=== PATIENT | male | born 1950 | race Caucasian/White ===

== ENCOUNTER 2016-12-19 11:57 | Inpatient (IN) | payer MEDICAID, OTHER ==
[~2016-12-19] VITALS: Ht 185.4 cm; Wt 70.4 kg
[2016-12-19 17:56] VITALS: BP 117/71
[2016-12-19] MEDS ORDERED: ALBU2.5V NEB (18:41)
[2016-12-19] MEDS ORDERED: PIPE3.375 IV (18:41)
[2016-12-19] MEDS ORDERED: DOCU-30 PO (18:41)
[2016-12-19] MEDS ORDERED: LEVO750T26 IV (18:41)
[2016-12-19] MEDS ORDERED: IBUP-1222 PO (18:41)
[2016-12-19] MEDS ORDERED: LACT1CAP24 PO (18:41)
[2016-12-19] MEDS ORDERED: BENZ100C PO (18:41)
[2016-12-19] MEDS ORDERED: GUAI120L37 PO (18:41)
[2016-12-19] MEDS ORDERED: ENOX40SY4 SQ (18:41)
[2016-12-19] MEDS ORDERED: ACET650S21 PO (18:41)
[2016-12-19] MEDS ORDERED: VANCOMYCIN PER PHARMACY MC PRN (19:00)
[2016-12-19] MEDS ORDERED: ONDA4SOL2 IV (19:04)
[2016-12-19] MEDS ORDERED: [UNRECOGNIZED DRUG - CODE] IV (19:13)
[2016-12-19 19:30] VITALS: BP 116/71
[2016-12-19] MEDS ORDERED: PLEASE ENTER HEIGHT AND WEIGHT MC SCH (19:30)
[2016-12-19] MEDS ORDERED: OXYcodone IR 5MG TABLET PO PRN (19:30)
[2016-12-19] MEDS ORDERED: BISACODYL 10 MG SUPP PR PRN (19:30)
[2016-12-19] MEDS ORDERED: morphine SULFATE 10 MG/ML, 1ML IVPush PRN (19:30)
[2016-12-19] MEDS ORDERED: POLYETHYLENE GLYCOL 17 GM PACKET PO PRN (19:30)
[2016-12-19] MEDS ORDERED: PLEASE ENTER ALLERGIES MC SCH ×2 (19:30)
[2016-12-19 19:32] LABS: ASPARTATE AMINO TRANSFERASE 25 U/L (15-37); BLOOD UREA NITROGEN 13 mg/dL (7-18)
[2016-12-19 19:35] LABS: DIFF TOTAL CELLS COUNTED 100 CELL DIFF
[2016-12-19 19:39] LABS: VERIFY COUNTS? YES
[2016-12-19] MEDS: HEPARIN 5,000 UNITS/ML, 1ML SQ SCH (20:52)
[2016-12-19] MEDS: MEROPENEM 1 GM in SODIUM CHLORIDE 0.9% 100 ML IV SCH (20:52)
[2016-12-19] MEDS: SODIUM CHLORIDE FLUSH 3ML SYRINGE IVF SCH (21:00)
[2016-12-19] MEDS ORDERED: PHARMACOKINETIC CONSULTATION MC ONE (21:00)
[2016-12-19] MEDS ORDERED: PHARMACOKINETIC MONITORING MC PRN (21:00)
[2016-12-19] MEDS: GUAIFENESIN/COD200MG-20MG/10ML LIQUID PO PRN (22:29)
[2016-12-19] MEDS: VANCOMYCIN 1,500 MG in SODIUM CHLORIDE 0.9% 250 ML IV SCH (22:29)
[2016-12-19] MEDS ORDERED: IBUPROFEN 600 MG TABLET PO PRN (22:30)
[2016-12-19] MEDS ORDERED: IBUPROFEN 200 MG TABLET PO PRN (22:30)
[2016-12-20 02:46] VITALS: BP 110/72
[2016-12-20 05:13] LABS: BLOOD UREA NITROGEN 14 mg/dL (7-18)
[2016-12-20 05:17] LABS: ASPARTATE AMINO TRANSFERASE 25 U/L (15-37)
[2016-12-20] MEDS: MEROPENEM 1 GM in SODIUM CHLORIDE 0.9% 100 ML IV SCH ×3 (05:25→21:09)
[2016-12-20] MEDS: HEPARIN 5,000 UNITS/ML, 1ML SQ SCH ×3 (05:26→21:09)
[2016-12-20 05:45] LABS: DIFF TOTAL CELLS COUNTED 100 CELL DIFF
[2016-12-20 05:46] LABS: VERIFY COUNTS? YES
[2016-12-20 07:30] VITALS: BP 119/73
[2016-12-20] MEDS: ALBUTEROL/IPRATROPIUM 2.5MG/0.5MG, 3 ML NPPB PRN ×2 (07:45→20:13)
[2016-12-20] MEDS: SENNA/DOCUSATE TABLET PO SCH (09:00)
[2016-12-20] MEDS: SODIUM CHLORIDE FLUSH 3ML SYRINGE IVF SCH ×2 (09:00→21:00)
[2016-12-20] MEDS: VANCOMYCIN 1,500 MG in SODIUM CHLORIDE 0.9% 250 ML IV SCH ×2 (10:42→22:42)
[2016-12-20] MEDS: ONDANSETRON 2MG/ML, 2ML IVPush PRN (10:49)
[2016-12-20 12:56] VITALS: BP 93/59
[2016-12-20] MEDS: GUAIFENESIN/COD200MG-20MG/10ML LIQUID PO PRN ×2 (14:57→21:09)
[2016-12-20] MEDS: ACETAMINOPHEN 325 MG TABLET PO PRN (15:37)
[2016-12-20 19:52] VITALS: BP 96/49
[2016-12-20 21:12] VITALS: BP 100/62
[2016-12-21 01:08] VITALS: BP 110/67
[2016-12-21] MEDS: MEROPENEM 1 GM in SODIUM CHLORIDE 0.9% 100 ML IV SCH ×3 (05:10→21:37)
[2016-12-21] MEDS: HEPARIN 5,000 UNITS/ML, 1ML SQ SCH ×3 (05:10→22:48)
[2016-12-21] MEDS: ALBUTEROL/IPRATROPIUM 2.5MG/0.5MG, 3 ML NPPB SCH ×4 (05:20→19:25)
[2016-12-21] MEDS: GUAIFENESIN/COD200MG-20MG/10ML LIQUID PO PRN ×2 (06:14→19:44)
[2016-12-21 07:52] VITALS: BP 108/65
[2016-12-21] MEDS: SODIUM CHLORIDE FLUSH 3ML SYRINGE IVF SCH ×2 (09:00→21:38)
[2016-12-21] MEDS: SENNA/DOCUSATE TABLET PO SCH (09:00)
[2016-12-21] MEDS: ACETAMINOPHEN 325 MG TABLET PO PRN ×2 (09:21→19:44)
[2016-12-21] MEDS: VANCOMYCIN 1,500 MG in SODIUM CHLORIDE 0.9% 250 ML IV SCH ×2 (10:23→22:48)
[2016-12-21 14:00] VITALS: BP 116/73
[2016-12-21 18:38] VITALS: BP 115/67
[2016-12-22] MEDS: GUAIFENESIN/COD200MG-20MG/10ML LIQUID PO PRN ×3 (02:20→22:17)
[2016-12-22] MEDS: ACETAMINOPHEN 325 MG TABLET PO PRN ×4 (02:20→22:02)
[2016-12-22] MEDS: MEROPENEM 1 GM in SODIUM CHLORIDE 0.9% 100 ML IV SCH ×3 (05:44→22:00)
[2016-12-22] MEDS: HEPARIN 5,000 UNITS/ML, 1ML SQ SCH ×3 (06:37→22:15)
[2016-12-22 07:08] VITALS: BP 122/70
[2016-12-22] MEDS: ALBUTEROL/IPRATROPIUM 2.5MG/0.5MG, 3 ML NPPB SCH ×4 (07:40→19:22)
[2016-12-22] MEDS: SODIUM CHLORIDE FLUSH 3ML SYRINGE IVF SCH ×2 (09:00→22:00)
[2016-12-22] MEDS: SENNA/DOCUSATE TABLET PO SCH (09:49)
[2016-12-22] MEDS: VANCOMYCIN 1,500 MG in SODIUM CHLORIDE 0.9% 250 ML IV SCH ×2 (09:55→22:49)
[2016-12-22 14:39] VITALS: BP 114/78
[2016-12-22 20:46] VITALS: BP 95/67
[2016-12-22 22:15] VITALS: BP 108/72
[2016-12-23 03:31] VITALS: BP 114/67
[2016-12-23] MEDS: MEROPENEM 1 GM in SODIUM CHLORIDE 0.9% 100 ML IV SCH ×3 (06:09→21:08)
[2016-12-23] MEDS: HEPARIN 5,000 UNITS/ML, 1ML SQ SCH ×3 (06:09→21:09)
[2016-12-23 07:12] VITALS: BP 111/71
[2016-12-23] MEDS: ALBUTEROL/IPRATROPIUM 2.5MG/0.5MG, 3 ML NPPB SCH ×4 (07:37→20:10)
[2016-12-23] MEDS: SODIUM CHLORIDE FLUSH 3ML SYRINGE IVF SCH ×2 (09:00→21:09)
[2016-12-23] MEDS: ACETAMINOPHEN 325 MG TABLET PO PRN ×3 (09:17→21:09)
[2016-12-23] MEDS: SENNA/DOCUSATE TABLET PO SCH (09:17)
[2016-12-23] MEDS: GUAIFENESIN/COD200MG-20MG/10ML LIQUID PO PRN ×2 (09:19→21:09)
[2016-12-23] MEDS: VANCOMYCIN 1,500 MG in SODIUM CHLORIDE 0.9% 250 ML IV SCH ×2 (11:14→22:28)
[2016-12-23 13:29] VITALS: BP 109/62
[2016-12-23 19:14] VITALS: BP 121/67
[2016-12-24 02:01] VITALS: BP 114/70
[2016-12-24] MEDS: HEPARIN 5,000 UNITS/ML, 1ML SQ SCH ×3 (06:35→21:07)
[2016-12-24] MEDS: MEROPENEM 1 GM in SODIUM CHLORIDE 0.9% 100 ML IV SCH ×2 (06:35→23:15)
[2016-12-24 07:12] VITALS: BP 113/70
[2016-12-24] MEDS: ALBUTEROL/IPRATROPIUM 2.5MG/0.5MG, 3 ML NPPB SCH ×4 (07:50→20:00)
[2016-12-24] MEDS: SODIUM CHLORIDE FLUSH 3ML SYRINGE IVF SCH ×2 (09:00→21:00)
[2016-12-24] MEDS: SENNA/DOCUSATE TABLET PO SCH (09:06)
[2016-12-24] MEDS: ACETAMINOPHEN 325 MG TABLET PO PRN ×3 (09:06→21:16)
[2016-12-24 12:53] VITALS: BP 116/68
[2016-12-24 13:45] LABS: BLOOD UREA NITROGEN 15 mg/dL (7-18)
[2016-12-24 18:56] VITALS: BP 128/90
[2016-12-24] MEDS: VANCOMYCIN 1,500 MG in SODIUM CHLORIDE 0.9% 250 ML IV SCH (21:00)
[2016-12-24] MEDS: GUAIFENESIN/DM 200-20MG, 10ML UDC PO PRN (22:36)
[2016-12-25 02:19] VITALS: BP 107/69
[2016-12-25] MEDS: HEPARIN 5,000 UNITS/ML, 1ML SQ SCH ×3 (06:02→20:54)
[2016-12-25] MEDS: MEROPENEM 1 GM in SODIUM CHLORIDE 0.9% 100 ML IV SCH ×2 (06:02→13:50)
[2016-12-25] MEDS: ACETAMINOPHEN 325 MG TABLET PO PRN ×3 (06:15→18:09)
[2016-12-25] MEDS: ALBUTEROL/IPRATROPIUM 2.5MG/0.5MG, 3 ML NPPB SCH ×4 (06:33→20:00)
[2016-12-25] MEDS: SENNA/DOCUSATE TABLET PO SCH (08:10)
[2016-12-25] MEDS: VANCOMYCIN 1,500 MG in SODIUM CHLORIDE 0.9% 250 ML IV SCH (08:10)
[2016-12-25 08:56] VITALS: BP 119/73
[2016-12-25] MEDS: SODIUM CHLORIDE FLUSH 10ML SYR IVF SCH ×2 (11:26→20:54)
[2016-12-25 12:58] VITALS: BP 120/71
[2016-12-25 19:38] VITALS: BP 116/74
[2016-12-25] MEDS: AMOXICILLIN/CLAV 875-125MG TABLET PO SCH (20:53)
[2016-12-25] MEDS: GUAIFENESIN/DM 200-20MG, 10ML UDC PO PRN (20:54)
[2016-12-26] MEDS: ACETAMINOPHEN 325 MG TABLET PO PRN ×3 (01:47→21:24)
[2016-12-26 02:20] VITALS: BP 110/72
[2016-12-26] MEDS: HEPARIN 5,000 UNITS/ML, 1ML SQ SCH ×3 (06:00→21:24)
[2016-12-26] MEDS: ONDANSETRON 2MG/ML, 2ML IVPush PRN (06:19)
[2016-12-26] MEDS: ALBUTEROL/IPRATROPIUM 2.5MG/0.5MG, 3 ML NPPB SCH ×4 (07:00→19:20)
[2016-12-26] MEDS: SENNA/DOCUSATE TABLET PO SCH (09:00)
[2016-12-26 09:25] VITALS: BP 120/77
[2016-12-26] MEDS: SODIUM CHLORIDE FLUSH 10ML SYR IVF SCH ×2 (09:52→21:24)
[2016-12-26] MEDS: AMOXICILLIN/CLAV 875-125MG TABLET PO SCH ×2 (09:54→21:24)
[2016-12-26] MEDS: SIMETHICONE 80 MG CHEW TAB PO PRN ×3 (10:40→21:44)
[2016-12-26 12:53] VITALS: BP 129/87
[2016-12-26 14:30] LABS: OCCBLD OBC PASS
[2016-12-26 19:01] VITALS: BP 112/73
[2016-12-27 02:19] VITALS: BP 120/84
[2016-12-27] MEDS: SIMETHICONE 80 MG CHEW TAB PO PRN ×2 (02:26→13:16)
[2016-12-27] MEDS: HEPARIN 5,000 UNITS/ML, 1ML SQ SCH ×3 (04:25→21:43)
[2016-12-27] MEDS: ONDANSETRON 2MG/ML, 2ML IVPush PRN (06:10)
[2016-12-27] MEDS: ACETAMINOPHEN 325 MG TABLET PO PRN ×2 (06:11→20:04)
[2016-12-27] MEDS: ALBUTEROL/IPRATROPIUM 2.5MG/0.5MG, 3 ML NPPB SCH ×4 (06:40→19:09)
[2016-12-27 08:45] VITALS: BP 130/86
[2016-12-27] MEDS: SENNA/DOCUSATE TABLET PO SCH (09:00)
[2016-12-27] MEDS: SODIUM CHLORIDE FLUSH 10ML SYR IVF SCH ×2 (09:38→20:04)
[2016-12-27] MEDS: AMOXICILLIN/CLAV 875-125MG TABLET PO SCH ×2 (09:38→20:03)
[2016-12-27 14:05] VITALS: BP 108/68
[2016-12-27 18:59] VITALS: BP 128/83
[2016-12-28 01:13] VITALS: BP 105/66
[2016-12-28] MEDS: ONDANSETRON 2MG/ML, 2ML IVPush PRN (03:53)
[2016-12-28] MEDS: ACETAMINOPHEN 325 MG TABLET PO PRN ×4 (03:54→20:17)
[2016-12-28] MEDS: HEPARIN 5,000 UNITS/ML, 1ML SQ SCH ×3 (05:26→20:18)
[2016-12-28] MEDS: ALBUTEROL/IPRATROPIUM 2.5MG/0.5MG, 3 ML NPPB SCH ×4 (07:15→19:56)
[2016-12-28] MEDS: AMPICILLIN/SULBACTAM 3 GM in SODIUM CHLORIDE 0.9% 100 ML IV SCH ×4 (08:00→20:17)
[2016-12-28 08:10] VITALS: BP 119/80
[2016-12-28] MEDS: SENNA/DOCUSATE TABLET PO SCH (09:00)
[2016-12-28] MEDS: SODIUM CHLORIDE FLUSH 10ML SYR IVF SCH ×2 (09:00→20:17)
[2016-12-28] MEDS: SIMETHICONE 80 MG CHEW TAB PO PRN (09:18)
[2016-12-28 14:46] VITALS: BP 121/70
[2016-12-28 20:21] VITALS: BP 131/84
[2016-12-29 01:06] VITALS: BP 128/71
[2016-12-29] MEDS: ACETAMINOPHEN 325 MG TABLET PO PRN ×4 (01:59→20:13)
[2016-12-29] MEDS: AMPICILLIN/SULBACTAM 3 GM in SODIUM CHLORIDE 0.9% 100 ML IV SCH ×2 (02:01→09:24)
[2016-12-29] MEDS: HEPARIN 5,000 UNITS/ML, 1ML SQ SCH ×3 (05:45→22:00)
[2016-12-29 07:18] VITALS: BP 132/74
[2016-12-29] MEDS: ALBUTEROL/IPRATROPIUM 2.5MG/0.5MG, 3 ML NPPB SCH ×2 (07:53→11:00)
[2016-12-29] MEDS: SENNA/DOCUSATE TABLET PO SCH (09:00)
[2016-12-29] MEDS: SODIUM CHLORIDE FLUSH 10ML SYR IVF SCH ×2 (09:25→20:13)
[2016-12-29] MEDS: LINEZOLID 600 MG TABLET PO SCH ×2 (13:53→20:13)
[2016-12-29 14:07] VITALS: BP 138/84
[2016-12-29] MEDS ORDERED: ALBUTEROL/IPRATROPIUM 2.5MG/0.5MG, 3 ML NPPB PRN (15:00)
[2016-12-29 20:02] VITALS: BP 111/79
[2016-12-30 01:52] VITALS: BP 119/72
[2016-12-30] MEDS: ACETAMINOPHEN 325 MG TABLET PO PRN ×3 (03:04→12:11)
[2016-12-30] MEDS: HEPARIN 5,000 UNITS/ML, 1ML SQ SCH (06:00)
[2016-12-30 07:02] VITALS: BP 111/73
[2016-12-30] MEDS: SODIUM CHLORIDE FLUSH 10ML SYR IVF SCH (08:11)
[2016-12-30] MEDS: LINEZOLID 600 MG TABLET PO SCH (08:11)
[2016-12-30] MEDS ORDERED: SENNA/DOCUSATE TABLET PO SCH (09:00)
[2016-12-30] MEDS ORDERED: LINEZOLID PMX 600MG/300ML 300 ML IV SCH (09:30)
[2016-12-30 12:59] VITALS: BP 100/61
[2016-12-30] MEDS ORDERED: SIME80TA16 PO (13:04)
[2016-12-30] MEDS ORDERED: LINE600T37 PO (13:05)
== END 2016-12-30 17:37 | disposition home or self-care (01) | DRG 177 ==
LOC: 4WST 17:51
PROVIDERS: ADMIT Internal Medicine; ATTEND Family Medicine
PROC: B5181ZA Fluoroscopy of Superior Vena Cava using Low Osmolar Contrast, Guidance (ICD-10-PCS; principal; 2016-12-24)
PROC: 02HV33Z Insertion of Infusion Device into Superior Vena Cava, Percutaneous Approach (ICD-10-PCS; 2016-12-24)
PROC: B548ZZA Ultrasonography of Superior Vena Cava, Guidance (ICD-10-PCS; 2016-12-24)
DX: J85.0 Gangrene and necrosis of lung (principal); E43 Unspecified severe protein-calorie malnutrition; J96.00 Acute respiratory failure, unspecified whether with hypoxia or hypercapnia; J90 Pleural effusion, not elsewhere classified; L03.115 Cellulitis of right lower limb; B95.62 Methicillin resistant Staphylococcus aureus infection as the cause of diseases classified elsewhere; F10.20 Alcohol dependence, uncomplicated; K64.9 Unspecified hemorrhoids; Z87.891 Personal history of nicotine dependence; Z82.3 Family history of stroke; Z82.49 Family history of ischemic heart disease and other diseases of the circulatory system; Z79.899 Other long term (current) drug therapy
CPT/HCPCS: 36415; 36569; 71010; 71250; 76937; 77001; 80048; 80053; 80202; 82272; 83735; 85014; 85018; 85025; 87040; 87070; 87205; 87324; 94640; J0295; J1644; J2185; J2405; J3370; J7620; C1751; J7050